=== PATIENT | male | born 1945 | race Caucasian/White ===

== ENCOUNTER → 2016-12-30 | Outpatient (CLI) | payer OTHER ==
--- NOTE | 2017-01-02 12:03 | DI ---
MRI LUMBAR SPINE W/O CN,12/30/2016 2:51 PM: Clinical History: Radicular low back pain. Previous Exam: January 22, 2013 Findings: Multiplanar MR images are obtained through the lumbar spine without contrast, and demonstrate stable grade 1 retrolisthesis of L4 on L5. There have been new degenerative endplate changes involving the L1 vertebral body involving the infer ior endplate with subchondral cyst formation and a large amount of marrow edema throughout the entire L1 vertebral body. There is disc desiccation throughout. The major vascular flow voids are unremarkable. The spinal cord descends normally with normal course and caliber a normal conus at the L1 level. There is a small 17 mm simple cyst involving the inferior pole left kidney. There is a stable mottled marrow signal from the prior exam. There are degenerative changes noted inv olving the posterior articulating facets. Individual intervertebral disc spaces: T12/L1: There is disc desiccation and a broad-based disc bulge combining with some facet and ligament um flavum hypertrophy to cause minimal central canal stenosis with mild bilateral neural foraminal na rrowing essentially unchanged from the prior exam. L1/L2: There is new disc desiccation and a 3 mm broad-based disc bulge with some mild facet and ligam entum flavum hypertrophy contributing to mild bilateral neural foraminal narrowing. L2/3: There is disc desiccation and a 3 mm broad-based disc bulge combining with facet and ligamentum flavum hypertrophy causing mild bilateral neural foraminal narrowing. L3/4: There is disc desiccation and a broad-based disc bulge with some facet and ligamentum flavum hy pertrophy contributing to mild to moderate bilateral neuroforaminal narrowing. L4/5: There is grade 1 retrolisthesis of L4 and L5. There is significant facet and ligamentum flavum hypertrophy contributing to moderate to severe right lateral recess stenosis and moderate left neurof oraminal narrowing. L5/S1: Mild bilateral neural foraminal narrowing. Impression: L1/L2: There is new disc desiccation and a 3 mm broad-based disc bulge with some mild facet and ligam entum flavum hypertrophy contributing to mild bilateral neural foraminal narrowing. L2/3: There is disc desiccation and a 3 mm broad-based disc bulge combining with facet and ligamentum flavum hypertrophy causing mild bilateral neural foraminal narrowing. L3/4: There is disc desiccation and a broad-based disc bulge with some facet and ligamentum flavum hy pertrophy contributing to mild to moderate bilateral neuroforaminal narrowing. L4/5: There is grade 1 retrolisthesis of L4 and L5. There is significant facet and ligamentum flavum hypertrophy contributing to moderate to severe right lateral recess stenosis and moderate left neurof oraminal narrowing.
== END ==
LOC: MRI 14:47
PROVIDERS: ATTEND Chiropractor
DX: M54.16 Radiculopathy, lumbar region (principal); M51.16 Intervertebral disc disorders with radiculopathy, lumbar region
CPT/HCPCS: 72148